=== PATIENT | male | born 1940 | race Caucasian/White ===

== ENCOUNTER → 2016-09-15 | Outpatient (CLI) | payer OTHER | LOC: FIMAGING 13:01 | DX: R05 Cough (principal); J43.9 Emphysema, unspecified ==

== ENCOUNTER → 2016-09-17 | Outpatient (CLI) | payer OTHER | LOC: CIMAGING 08:01 | DX: R91.8 Other nonspecific abnormal finding of lung field (principal); R05 Cough | CPT/HCPCS: 71250-PO ==